=== PATIENT | male | born 1950 | race Caucasian/White ===

== ENCOUNTER 2019-04-11 12:55 | Emergency (ER) | payer MEDICARE ==
--- NOTE | 2019-04-11 13:41 | RAD ---
Chest one view HISTORY: Chest pain. COMPARISON: 05/20/2017. FINDINGS: Cardiac silhouette is magnified by projection. Pulmonary vasculature is unremarkable. Media stinum is midline. Elevation left hemidiaphragm and scarring at the left lateral costophrenic angle are similar in appearance to the prior study. No lobar consolidation or evidence of pneumothorax. IMPRESSION: Chronic-type findings are stable.
[2019-04-11 13:46] LABS: #Eosinphils 0.1 thou/uL (0.0-0.7); #Lymphocytes 1.6 thou/uL (1.20-3.40); #Monocytes 0.7 thou/uL (0.11-0.59); #Neutrophils 4.7 thou/uL (1.40-6.50); %Basophils 0.6 % (0.0-1.0); %Eosinophils 1.2 % (0.0-10.0); %Lymphocytes 23.1 % (21.0-51.0); %Monocytes 9.5 % (0.0-10.0); %Neutrophils 65.6 % (42.0-75.0); Hemoglobin 16.1 g/dL (14.0-18.0); Mean Corpuscular HGB CONC 33.9 g/dL (32.0-36.0); Mean Corpuscular Hemoglobin 32.7 pg (27.0-31.0); Mean Corpuscular Volume 96.5 fL (78.0-98.0); Mean Platelet Volume 6.5 fL (7.4-10.4); Platelet Count 240 thou/uL (130-400); RBC Distribution Width 12.4 % (11.5-14.5); Red Blood Cell (RBC) Count 4.92 mill/uL (4.70-6.10); White Blood Cell (WBC) Count 7.1 thou/uL (4.8-10.8)
[2019-04-11 14:14] LABS: ALT (SGPT) 13 U/L (8-55); AST (SGOT) 22 U/L (5-34); Albumin 4.4 g/dL (3.4-4.8); Alkaline Phosphatase 111 U/L (40-150); Anion Gap 14 mmol/L (10-20); BUN (Urea Nitrogen) 11 mg/dL (8.4-25.7); CK (CPK) 167 U/L (30-200); Calc. Creatinine Clearance 0 mL/min (70-130); Calcium 9.9 mg/dL (7.8-10.44); Carbon Dioxide 30 mmol/L (23-31); Chloride 99 mmol/L (98-107); Estimated GFR-MDRD Greater than 90; Globulin 3.2 g/dL (2.4-3.5); Glucose 97 mg/dL (80-115); Lipase 13 U/L (8-78); Potassium 3.6 mmol/L (3.5-5.1); Protein, Total 7.6 g/dL (5.8-8.1); Sodium 139 mmol/L (136-145)
--- NOTE | 2019-04-15 15:08 | EKG ---
Test Reason : Blood Pressure : / mmHG Vent. Rate : 067 BPM Atrial Rate : 067 BPM P-R Int : 170 ms QRS Dur : 090 ms QT Int : 420 ms P-R-T Axes : 051 007 055 degrees QTc Int : 443 ms Normal sinus rhythm Septal infarct , age undetermined Abnormal ECG Confirmed by MIROSLAVA KAUFMAN ([id number]), research editor MILDRED MONTEMAYOR ([id number]) on 04/15/2019 3:08:18 PM Referred By: Confirmed By:MIROSLAVA KAUFMAN
== END 2019-04-11 18:09 | disposition home or self-care (01) ==
LOC: ERS 12:55
DX: R07.2 Precordial pain (principal); Z71.6 Tobacco abuse counseling; F41.9 Anxiety disorder, unspecified; F17.210 Nicotine dependence, cigarettes, uncomplicated; K21.9 Gastro-esophageal reflux disease without esophagitis; I10 Essential (primary) hypertension; Z79.82 Long term (current) use of aspirin; Z79.899 Other long term (current) drug therapy
CPT/HCPCS: 36415; 71045; 80053; 82550; 83690; 83880; 84484; 85025; 93005; 99406

== ENCOUNTER 2020-02-22 10:26 | Outpatient (CLI) | payer MEDICARE ==
--- NOTE | 2020-02-22 11:55 | CT ---
Exam: Chest CT with contrast Abdomen CT with contrast HISTORY: Staging for esophageal cancer. COMPARISON: None. FINDINGS: Chest CT: Lower neck and axilla: No lymphadenopathy. Mediastinum: Enlarged right paratracheal lymph node measuring 2.5 x 1.7 cm. Enlarged, slightly necrot ic subcarinal lymph node measuring 1.6 x 2.3 cm. Enlarged right hilar lymph node measuring 1.8 x 2.4 cm. Mild left hilar lymphadenopathy. There is circumferential mucosal thickening involving the di stal thoracic esophagus with adjacent mediastinal fat stranding. Trachea and central bronchi: Patent. Pleural spaces: No pleural effusion. No pneumothorax. Lungs: Chronic lung parenchymal changes with scar and atelectasis in the left lower lobe and to lesse r extent lung apices. Nodules: There are diffuse multifocal nodules throughout the lung parenchyma. Press Clipper enlarged nodule in the right lung is located in the superior segment of the right lower lobe and measures 1.0 x 0.8 cm. Press Clipper enlarged left lung nodule is also located in the left lower lobe and kelvin sures 0.8 x 0.7 cm. There are enlarged pericardial lymph nodes. Press Clipper enlarged pericardial lymph node measures 1 .0 x [address]: No evidence of cholecystitis. Ureteral vein is patent. Liver demonstrates a hypodense nodule in the hepatic dome measuring 0.7 x 0.7 cm. The size of the nod ule and motion degradation limits further characterization. There are no enhancing masses within the hepatic parenchyma. Spleen, pancreas and bilateral adrenal gland have normal attenuation. Symmetric enhancement the kidne ys. Bilaterally no obstructive uropathy. Lymph nodes: Enlarged, necrotic gastrohepatic lymph node measuring 1.5 x 1.5 cm. Enlarged, necrotic l eft periaortic lymph node measures 2.3 x 4.0 cm and 2.2 x 2.3 cm. Enlarged necrotic aortocaval lymph node measures 3.2 x 3.2 cm. Alimentary canal: Mucosal thickening of the distal thoracic esophagus. Gastric mucosa and multiple no rmal caliber small bowel loops are identified. Visualized colon is decompressed. Osseous structures demonstrate extensive fusion hardware. There is endplate sclerosis due to degenera tive change. There are no lytic or blastic lesions. IMPRESSION: 1. Mucosal thickening involving the distal thoracic esophagus, compatible with patient's known histor y of esophageal cancer. 2. Extensive metastases with evidence of mediastinal and hilar lymphadenopathy, multiple lung parench ymal nodules as well as gastrohepatic and retroperitoneal lymphadenopathy, as described above. Transcribed Date/Time: 02/22/2020 12:02 PM
== END 2020-02-22 10:27 | disposition home or self-care (01) ==
LOC: SCSCT 10:26
PROVIDERS: ATTEND Internal Medicine Hematology & Oncology
DX: C15.4 Malignant neoplasm of middle third of esophagus (principal); C78.1 Secondary malignant neoplasm of mediastinum; R91.8 Other nonspecific abnormal finding of lung field; R59.0 Localized enlarged lymph nodes
CPT/HCPCS: 71260; 74160

== ENCOUNTER 2020-03-23 06:46 | Day surgery (SDC) | payer MEDICARE ==
[2020-03-22 14:36] VITALS: BMI 22.2
[2020-03-23] MEDS ORDERED: Sodium Chloride 0.9% 10 ML ONE (07:43)
--- NOTE | 2020-03-23 10:34 | OP ---
DATE OF PROCEDURE: 03/23/2020 [facility] SURGEON: None. PROCEDURES PERFORMED: Esophagogastroduodenoscopy with percutaneous endoscopic gastrostomy tube placement. 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 He has persistent dysphagia and failure to thrive. MEDICATIONS: 1. See Anesthesia record. 2. Ancef 2 g IV. FINDINGS: After discussion of the risks, benefits, and alternatives of the procedure, informed consent was obtained and witnessed. Pre-endoscopic cardiopulmonary examination was satisfactory. Time-out was performed before sedation was achieved. Sedation was achieved with Anesthesia assistance in the endoscopy unit. The patient was placed in the supine position. A Pentax adult upper endoscope was placed into the oropharynx and passed through the cricopharyngeus under direct visualization. The proximal and mid esophageal mucosa appears normal, but in the distal esophagus, there is a large nonobstructing ulcerated friable mass extending from 35 cm down to 42 cm from the incisors. This is consistent with his known diagnosis of esophageal cancer. The endoscope was advanced beyond this area and into the stomach. Forward and retroflexed views of the entire gastric mucosa were obtained. The patient has a J-shaped stomach. The gastric mucosa appeared normal. The endoscope was advanced through the pylorus, then to the first and second portions of the duodenum, which appeared normal. The endoscope was then withdrawn back into the stomach. Using one-to-one pressure and transillumination methods, a suitable site for PEG tube placement was located in the left upper quadrant. This ended up being fairly proximally in the stomach, near the fundus. The site was prepped and draped in a sterile fashion and then anesthetized with subcutaneous lidocaine. A 1 cm vertical incision was then made. The introducer needle and catheter were then introduced transcutaneously into the stomach. The blue wire was passed through the catheter and grasped with a snare, then removed from the patient's mouth. A 20-Welsh traction PEG tube was affixed to the wire and pulled into correct position without difficulty. The endoscope was passed back down into the stomach to view the internal bumper, which appeared to be in good position without complication. The endoscope was then removed. The external port clamp and external bumper were all affixed to the PEG tube and the procedure was complete. The external bumper was affixed at a distance of 3 cm. The patient tolerated the procedure well. There were no immediate postprocedure complications. IMPRESSION: 1. Successful placement of 20-Welsh traction percutaneous endoscopic gastrostomy tube to the left upper quadrant, with external bumper at 3 cm. 2. Ulcerated mass in the distal esophagus from 35 to 42 cm, consistent with the patient's known history of esophageal cancer. RECOMMENDATIONS: 1. Discharge back to rehab facility. 2. Flush tube regularly. 3. Can use the tube for medications now. 4. Can use the tube for feeds in 4 hours. 5. Please call anytime with questions or concerns. Job ID: [id number]
[2020-03-23] MEDS ORDERED: PROPOFOL 200 MG/20 ML VIAL ONE (15:02)
[2020-03-23] MEDS ORDERED: PHENYLEPHRINE-NS 100 MCG/ML 10 ML SYRINGE ONE (15:02)
== END 2020-03-25 11:30 | disposition home or self-care (01) ==
LOC: SDC 06:46
PROVIDERS: ATTEND Surgery
PROC: 0DH63UZ Insertion of Feeding Device into Stomach, Percutaneous Approach (ICD-10-PCS; principal; 2020-03-23)
DX: R62.7 Adult failure to thrive (principal); C15.5 Malignant neoplasm of lower third of esophagus; C78.00 Secondary malignant neoplasm of unspecified lung; S72.009A Fracture of unspecified part of neck of unspecified femur, initial encounter for closed fracture; Z68.22 Body mass index [BMI] 22.0-22.9, adult; Z79.82 Long term (current) use of aspirin; Z79.899 Other long term (current) drug therapy; X58.XXXA Exposure to other specified factors, initial encounter
CPT/HCPCS: J0690; J1642; J2704